=== PATIENT | male | born 1950 | race Caucasian/White ===

== ENCOUNTER → 2018-03-06 | Day surgery (SDC) | payer OTHER ==
[2018-02-28 14:16] VITALS: BMI 27.6
[~2018-03-06] MED LIST: LIDOCAINE HCL/PF 2% SDV 5ML VIAL ONE; PROPOFOL 20 ML ONE
[2018-03-06 08:10] VITALS: TEMP 97.6
[2018-03-06 09:14] VITALS: BP 130/76; PULSE 79
--- NOTE | 2018-03-08 17:08 | PATH ---
Surgical Pathology Report Patient Name: ESTEFANÍA VARGAS [facility]. Rec. #: [id number] /Age/Gender: 1950 (Age: 67) / M Account: [id number] Location: [facility] Taken: 03/06/2018 Received: 03/06/2018 Reported: 03/08/2018 Physicians: Timoteo Maher M.D. Specimen(s) Received POLYP OF CECUM Clinical History Rule out colon cancer Postoperative diagnosis: Polyp Final Diagnosis CECUM, POLYP, BIOPSY: HYPERPLASTIC POLYP. Electronically Signed Bernadette Peng M.D. Gross Description Received in formalin, labeled "polyp at cecum" is a goff, irregular portion of soft tissue measuring 0.2 cm. in greatest dimension. The specimen is submitted in toto in one cassette. 03/07/201803/07/2018
== END | disposition home or self-care (01) ==
LOC: FASU-ENDO 07:43
PROVIDERS: ATTEND Internal Medicine Gastroenterology
PROC: 0DBH8ZX Excision of Cecum, Via Natural or Artificial Opening Endoscopic, Diagnostic (ICD-10-PCS; principal; 2018-03-06 08:28)
DX: Z12.11 Encounter for screening for malignant neoplasm of colon (principal); K63.5 Polyp of colon; K57.30 Diverticulosis of large intestine without perforation or abscess without bleeding
CPT/HCPCS: 82962; 88305-TC

== ENCOUNTER 2018-09-28 13:40 | Emergency (ER) | payer OTHER | END 2018-09-28 16:55 | disposition home or self-care (01) | LOC: FER 13:40 ==

== ENCOUNTER 2019-11-14 17:02 | Emergency (ER) | payer OTHER ==
--- NOTE | 2019-11-14 17:18 | TELE ---
HPI Do you have fever,cough or shortness of breath?: Yes - General History Source: Patient Exam Limitations: No Limitations - History of Present Illness Timing/Duration: unsure Associated Symptoms: reports: denies symptoms 11/14/19 17:06 69-year-old male with history of hypertension and diabetes presents to the ED for cover testing. Patient states is going to [place] in 4 days and is also concerned since he was with a friend this past Sunday who was at a libertarian that had a child that was positive for COVID. The friend was not tested yet for COVID but is asymptomatic along with this patient also being asymptomatic Past History - Travel History Traveled outside of the country in the last 30 days: No Close contact w/someone who was outside of country & ill: No - Medical History Allergies/Adverse Reactions: Allergies Allergy/AdvReac Type Severity Reaction Status Date / Time No Known Allergies Allergy Verified 03/06/18 08:07 Home Medications: Ambulatory Orders Amlodipine Besylate 5 mg PO DAILY 02/28/18 Ascorbic Acid [Vitamin C -] 500 mg PO DAILY 02/28/18 Metformin HCl [Glucophage] 500 mg PO BID 02/28/18 [place]-3/Dha/Epa/Fish Oil [Fish Oil 1,000 mg Softgel] 1 cap PO DAILY 02/28/18 Ramipril 10 mg PO BID 02/28/18 Zinc 50 mg PO DAILY 02/28/18 Naproxen [Naprosyn -] 500 mg PO BID PRN #14 tablet 09/28/18 Oxycodone HCl/Acetaminophen [Percocet 5-325 mg Tablet -] 1 tab PO Q8H PRN #12 tablet MDD 3 09/28/18 Tamsulosin HCl [Flomax] 0.4 mg PO HS #10 capsule 09/28/18 Anemia: No Asthma: No Cancer: Yes (SKIN-MELANOMA X 2 BACK- ) Cardiac Disorders: No CVA: No COPD: No CHF: No Dementia: No Diabetes: Yes (TYPE 2- DX 2004) GI Disorders: No Disorders: Yes (BPH) HTN: Yes Hypercholesterolemia: Yes Liver Disease: No Seizures: No Thyroid Disease: No - Surgical History Appendectomy: No Cardiac Surgery: No Cholecystectomy: No Lung Surgery: No Neurologic Surgery: No Orthopedic Surgery: No - Psycho-Social/Smoking History Patient Lives Alone: No Smoking History: Never smoked Have you smoked in the past 12 months: No Review of Systems - Review of Systems Able to Perform ROS?: No Limited Japanese proficient: No Constitutional: No: Symptoms Reported HEENTM: No: Symptoms Reported Respiratory: No: Symptoms reported Cardiac (ROS): No: Symptoms Reported ABD/GI: No: Symptoms Reported : No: Symptoms Reported Musculoskeletal: No: Symptoms Reported Integumentary: No: Symptoms Reported Neurological: No: Symptoms reported Endocrine: No: Symptoms Reported Hematologic/Lymphatic: No: Symptoms Reported *Physical Exam - Physical Exam General Appearance: Yes: Nourished, Appropriately Dressed. No: Apparent Distress HEENT: positive: EOMI Neck: negative: Decreased range of motion Respiratory/Chest: negative: Respiratory Distress Gastrointestinal/Abdominal: positive: Distended Extremity: positive: Normal Inspection Integumentary: positive: Normal Color Neurologic: positive: Motor Strength 5/5 (Ambulatory) - Medical Decision Making 11/14/19 17:27 Chief complaint: Requesting cover testing. Asymptomatic. History of diabetes hypertension. Patient had been with someone who had consequent someone that tested positive for COVID last week. Exam: Limited but normal otherwise normal PE. Plan: Covid test ordered. Discharge Diagnosis at time of Disposition: Encounter by telehealth for suspected COVID-19 - Referrals - Patient Instructions Discharge Instructions: DI for COVID-19 (Suspected or Confirmed ) - Discharge Disposition: HOME Condition at time of Disposition: Good
== END 2019-11-14 17:28 | disposition home or self-care (01) ==
LOC: JVIRT 17:02
DX: Z11.59 Encounter for screening for other viral diseases (principal)
CPT/HCPCS: Q3014-GT; U0003

== ENCOUNTER 2020-01-30 11:26 | Emergency (ER) | payer OTHER | END 2020-01-30 15:16 | disposition home or self-care (01) | LOC: JVIRT 11:26 | DX: Z11.59 Encounter for screening for other viral diseases (principal) | CPT/HCPCS: Q3014-GT ==